=== PATIENT | female | born 1975 | race Caucasian/White ===

== ENCOUNTER 2017-07-04 00:55 | Emergency (ER) | payer OTHER ==
[~2017-07-04] VITALS: Ht 154.9 cm; Wt 58.5 kg
[~2017-07-04 00:55] MED LIST: ACET-1635 PO
[2017-07-04 01:09] VITALS: BP 132/83
--- NOTE | 2017-07-04 01:15 | NUR ---
PT TAKEN TO BED 5
--- NOTE | 2017-07-04 01:31 | NUR ---
Patient being evaluated by Dr. Reardon at bedside.
--- NOTE | 2017-07-04 01:32 | NUR ---
42/F c/o left flank pain, lower back pain x1 hour prior to arrival. Denies injury or trauma. Denies fever or chills. Denies s/s of UTI. AOX4, ambulatory with steady gait. VSS.
[2017-07-04 01:52] LABS: HEMOGLOBIN 10.2 g/dL (12.0-16.0); MEAN CORPUSCULAR HEMOGLOBIN 27 pg (27-31)
[2017-07-04 02:03] LABS: HEMATOCRIT 32.6 % (36-48); MEAN CORPUSCULAR HGB CONC 31 g/dL (33-37); MEAN CORPUSCULAR VOLUME 86 fL (80-94); PLATELET COUNT (AUTO) 227 K/uL (140-450); RED BLOOD CELL COUNT(AUTO) 3.79 MIL/uL (4.20-5.40); RED CELL DISTRIBUTION WIDTH 15.1 % (11.6-13.7); WHITE BLOOD COUNT (AUTO) 9.3 K/uL (4.8-10.8)
[2017-07-04 02:04] LABS: AMYLASE 37 U/L (25-115); LIPASE 156 U/L (73-393)
[2017-07-04 02:09] LABS: ALBUMIN 3.8 g/dL (3.4-5.0); ANION GAP 12.7 (8-16); CARBON DIOXIDE 25.9 mmol/L (21-32); CREATININE 0.7 mg/dL (0.6-1.3); POTASSIUM 3.6 mmol/L (3.5-5.1); TOTAL BILIRUBIN 0.4 mg/dL (0.0-1.0)
--- NOTE | 2017-07-04 02:11 | NUR ---
Patient appears to be resting comfortably in bed. Vital Signs within normal limits. Respirations even and unlabored.
[2017-07-04 02:12] LABS: LYMPHOCYTES % (MANUAL) 21 % (20-46); MONOCYTES % (MANUAL) 0 % (5-12)
--- NOTE | 2017-07-04 02:58 | NUR ---
Dr. Reardon re-evaluating patient at bedside.
[2017-07-04 03:10] VITALS: BP 104/62
--- NOTE | 2017-07-04 03:10 | NUR ---
Patient discharged with v/s stable. Written and verbal after care instructions given and explained. Patient alert, oriented and verbalized understanding of instructions. Ambulatory with steady gait. All questions addressed prior to discharge. ID band removed. Patient advised to follow up with PMD. Rx of Flexeril 5mg and Ibuprofen 800mg given. Patient educated on indication of medication including possible reaction and side effects. Opportunity to ask questions provided and answered.
== END 2017-07-04 03:10 | disposition home or self-care (01) ==
LOC: MED 00:55
DX: M94.0 Chondrocostal junction syndrome [Tietze] (principal); Z90.49 Acquired absence of other specified parts of digestive tract; Z79.899 Other long term (current) drug therapy
CPT/HCPCS: 36415; 71010; 80053; 82150; 83690; 83880; 84484; 85025; 85379; 93005; 99285; Q0092